=== PATIENT | female | born 1985 | race African-American/Black ===

== ENCOUNTER 2020-05-13 10:48 | Emergency (ER) | payer MEDICAID ==
--- NOTE | 2020-05-13 11:49 | EDM.PDOC ---
ED HPI GENERAL MEDICAL PROBLEM - General Chief Complaint: General Stated Complaint: Cough, runny nose, fatigue Time Seen by Provider: 05/13/20 11:28 Source of Information: Reports: Patient History Limitations: Reports: No Limitations - History of Present Illness INITIAL COMMENTS - FREE TEXT/NARRATIVE: This patient is a 34 year old female that presents to the ER. Patient works at local [employer]. Patient reports that yesterday she started with headache frontal, runny nose, fatigue, chills, throat irritation. Patient reports that the [employer] tested her rapid for covid this morning and she was negative. Onset Date: 05/12/20 Duration: Day(s): (1) Location: Reports: Head Quality: Reports: Ache Severity: Mild Worsens with: Reports: None Associated Symptoms: Reports: Fever/Chills, Headaches. Denies: Confusion, Chest Pain, Cough, cough w sputum, Diaphoresis, Loss of Appetite, Malaise, Nausea/Vomiting, Rash, Seizure, Shortness of Breath, Syncope, Weakness Headache Pain Score (Numeric/FACES): 6 - Related Data Allergies Allergy/AdvReac Type Severity Reaction Status Date / Time No Known Allergies Allergy Verified 05/13/20 10:50 Home Meds: Home Meds . [No Known Home Meds] 05/13/20 [History] Past Medical History - Past Health History Medical/Surgical History: Denies Medical/Surgical History Social & Family History - Family History Family Medical History: No Pertinent Family History - Tobacco Use Tobacco Use Status *Q: Never Tobacco User Second Hand Smoke Exposure: No - Caffeine Use Caffeine Use: Reports: None - Recreational Drug Use Recreational Drug Use: No ED ROS GENERAL - Review of Systems Review Of Systems: See Below Constitutional: Reports: Chills, Malaise, Fatigue. Denies: Fever HEENT: Reports: Rhinitis, Throat Pain (described as irritation) Respiratory: Reports: No Symptoms. Denies: Shortness of Breath, Wheezing, Pleuritic Chest Pain, Cough, Sputum Cardiovascular: Reports: No Symptoms Endocrine: Reports: No Symptoms GI/Abdominal: Reports: No Symptoms. Denies: Abdominal Pain, Diarrhea, Nausea, Vomiting : Reports: No Symptoms Musculoskeletal: Reports: No Symptoms Skin: Reports: No Symptoms Neurological: Reports: Headache (frontal) Psychiatric: Reports: No Symptoms Hematologic/Lymphatic: Reports: No Symptoms Immunologic: Reports: No Symptoms ED EXAM, GENERAL - Physical Exam Exam: See Below Exam Limited By: No Limitations General Appearance: Alert, WD/WN, No Apparent Distress Eye Exam: Bilateral Eye: Normal Inspection, PERRL Ears: Normal External Exam, Normal Canal, Hearing Grossly Normal, Normal TMs Ear Exam: Bilateral Ear: Auricle Normal, Canal Normal, TM normal Nose: Normal Inspection, Normal Mucosa, No Blood Throat/Mouth: Normal Inspection, Normal Lips, Normal Teeth, Normal Gums, Normal Oropharynx, Normal Voice, No Airway Compromise Head: Atraumatic, Normocephalic Neck: Normal Inspection, Supple, Non-Tender, Full Range of Motion Respiratory/Chest: No Respiratory Distress, Lungs Clear, Normal Breath Sounds, No Accessory Muscle Use Cardiovascular: Normal Peripheral Pulses, Regular Rate, Rhythm, No Edema, No Gallop, No JVD, No Murmur, No Rub Peripheral Pulses: 2+: Radial (L), Radial (R), Posterior Tibial (L), Posterior Tibial (R) GI/Abdominal: Soft, Non-Tender, No Organomegaly Back Exam: Normal Inspection, Full Range of Motion. No: CVA Tenderness (L), CVA Tenderness (R) Extremities: Normal Inspection, Normal Range of Motion, No Pedal Edema, Normal Capillary Refill, Pedal Edema Neurological: Alert, Oriented, CN II-XII Intact, Normal Cognition, Normal Gait, No Motor/Sensory Deficits Psychiatric: Normal Affect, Normal Mood Skin Exam: Warm, Dry, Intact, Normal Color, No Rash Lymphatic: No Adenopathy #1 Interpretation EKG Date: 05/13/20 Time: 11:40 Rhythm: NSR Rate (Beats/Min): 68 [place]: Normal P-Wave: Present QRS: Normal ST-T: Normal QT: Normal Comparison: NA - No Prior EKG Course - Vital Signs Last Recorded V/S: Last Vital Signs Temp 98.6 F 05/13/20 10:58 Pulse 81 05/13/20 10:58 Resp 18 05/13/20 10:58 BP 144/72 H 05/13/20 10:58 Pulse Ox 100 05/13/20 10:58 - Orders/Labs/Meds Orders: Active Orders 24 hr Category Date Time Status Chest 2V [CR] Stat Exams 05/13/20 11:21 Taken CULTURE BLOOD [BC] Stat Lab 05/13/20 11:18 Received CULTURE BLOOD [BC] Stat Lab 05/13/20 11:18 Received D-DIMER QUANTITATIVE [COAG] Stat Lab 05/13/20 12:10 Received INFLUENZA A+B AG SCREEN [RM] Stat Lab 05/13/20 11:18 Received INR,PT,PROTHROMBIN TIME [COAG] Stat Lab 05/13/20 11:18 Received PTT,PARTIAL THROMBOPLSTIN TIME [COAG] Stat Lab 05/13/20 11:18 Received URINALYSIS W/O MICROSCOPIC [UA W/O MICROSCOPIC] [URIN] Lab 05/13/20 11:18 Ordered Stat Blood Culture x2 Reflex Set [OM.PC] Stat Oth 05/13/20 11:20 Ordered Isolation [COMM] Routine Oth 05/13/20 11:22 Active Labs: Laboratory Tests 05/13/20 05/13/20 05/13/20 Range/Units 11:18 11:18 11:18 WBC 3.9 L (5.0-10.0) 10^3/uL RBC 4.57 (4.00-5.50) 10^6/uL Hgb 13.2 (12.0-16.0) g/dL Hct 39.5 (37.0-47.0) % MCV 86.4 (82.0-94.0) fL MCH 28.9 (27.0-32.0) pg MCHC 33.4 (33.0-38.0) g/dL RDW Coeff of Christiano 13.0 (11.0-15.0) % Plt Count 149 L (150-400) 10^3/uL Neut % (Auto) 43.8 (35-85) % Lymph % (Auto) 47.3 (10-55) % Wilson % (Auto) 8.1 (0-16) % Eos % (Auto) 0.5 (0-5) % Baso % (Auto) 0.3 (0-3) % Neut # (Auto) 1.72 L (1.80-7.00) 10^3/uL Lymph # (Auto) 1.86 (1.00-4.80) 10^3/uL Wilson # (Auto) 0.32 (0.00-0.80) 10^3/uL Eos # (Auto) 0.02 (0.00-0.45) 10^3/uL Baso # (Auto) 0.01 10^3/uL Sodium (136-145) mEq/L Potassium (3.5-5.0) mEq/L Chloride (98-106) mEq/L Carbon Dioxide (21-32) mmol/L BUN (7-18) mg/dL Creatinine (0.6-1.0) mg/dL Est Cr Clr Drug Dosing mL/min Estimated GFR (MDRD) (>=60) mL/min Glucose (75-99) mg/dL Lactic Acid (0.4-2.0) mmol/L Calcium (8.4-10.1) mg/dL Total Bilirubin (0.0-1.0) mg/dL AST (15-37) U/L ALT (12-78) U/L Alkaline Phosphatase (46-116) U/L Creatine Kinase (21-215) U/L Troponin I (0.00-0.06) ng/mL NT-Pro-B Natriuret Pep (0-1000) pg/mL Total Protein (6.4-8.2) g/dL Albumin (3.4-5.0) g/dL Urine HCG, Qual Negative SARS CoV-2 RNA Rapid NEHAL Negative (NEGATIVE) 05/13/20 05/13/20 Range/Units 11:18 11:18 WBC (5.0-10.0) 10^3/uL RBC (4.00-5.50) 10^6/uL Hgb (12.0-16.0) g/dL Hct (37.0-47.0) % MCV (82.0-94.0) fL MCH (27.0-32.0) pg MCHC (33.0-38.0) g/dL RDW Coeff of Christiano (11.0-15.0) % Plt Count (150-400) 10^3/uL Neut % (Auto) (35-85) % Lymph % (Auto) (10-55) % Wilson % (Auto) (0-16) % Eos % (Auto) (0-5) % Baso % (Auto) (0-3) % Neut # (Auto) (1.80-7.00) 10^3/uL Lymph # (Auto) (1.00-4.80) 10^3/uL Wilson # (Auto) (0.00-0.80) 10^3/uL Eos # (Auto) (0.00-0.45) 10^3/uL Baso # (Auto) 10^3/uL Sodium 139 (136-145) mEq/L Potassium 3.4 L (3.5-5.0) mEq/L Chloride 102 (98-106) mEq/L Carbon Dioxide 25 (21-32) mmol/L BUN 9 (7-18) mg/dL Creatinine 0.7 (0.6-1.0) mg/dL Est Cr Clr Drug Dosing 107.01 mL/min Estimated GFR (MDRD) > 60 (>=60) mL/min Glucose 87 (75-99) mg/dL Lactic Acid 1.0 (0.4-2.0) mmol/L Calcium 9.1 (8.4-10.1) mg/dL Total Bilirubin 0.7 (0.0-1.0) mg/dL AST 15 (15-37) U/L ALT 20 (12-78) U/L Alkaline Phosphatase 44 L (46-116) U/L Creatine Kinase 205 (21-215) U/L Troponin I < 0.017 (0.00-0.06) ng/mL NT-Pro-B Natriuret Pep 86 (0-1000) pg/mL Total Protein 8.0 (6.4-8.2) g/dL Albumin 3.9 (3.4-5.0) g/dL Urine HCG, Qual SARS CoV-2 RNA Rapid NEHAL (NEGATIVE) - Radiology Interpretation Free Text/Narrative:: CXR: no acute findings, lungs clear. Departure - Departure Time of Disposition: 12:42 Disposition: Home, Self-Care 01 Condition: Fair Clinical Impression: Viral upper respiratory illness - Discharge Information *PRESCRIPTION DRUG MONITORING PROGRAM REVIEWED*: Not Applicable *COPY OF PRESCRIPTION DRUG MONITORING REPORT IN PATIENT ANDRA: Not Applicable Instructions: Viral Respiratory Infection, [id number] Referrals: PCP,None [Primary Care Provider] - Forms: ED Department Discharge Additional Instructions: Followup with a primary care provider this week in the clinic for a recheck Return to the ER for worsening of condition or any emergent concerns Tylenol or Motrin for pain or fever if develops Increase fluids Over the counter medications for symptoms Quarantine for 14 days from symptoms onset, unless instructed otherwise by the [facility]/employer Sepsis Event Note (ED) - Evaluation Sepsis Screening Result: No Definite Risk - Focused Exam Vital Signs: Vital Signs Temp Pulse Resp BP Pulse Ox 05/13/20 10:58 98.6 F 81 18 144/72 H 100 - My Orders Last 24 Hours: My Active Orders 05/13/20 11:18 CULTURE BLOOD [BC] Stat CULTURE BLOOD [BC] Stat INFLUENZA A+B AG SCREEN [RM] Stat INR,PT,PROTHROMBIN TIME [COAG] Stat PTT,PARTIAL THROMBOPLSTIN TIME [COAG] Stat URINALYSIS W/O MICROSCOPIC [UA W/O MICROSCOPIC] [URIN] Stat 05/13/20 11:20 Blood Culture x2 Reflex Set [OM.PC] Stat 05/13/20 11:21 Chest 2V [CR] Stat 05/13/20 11:22 Isolation [COMM] Routine 05/13/20 12:10 D-DIMER QUANTITATIVE [COAG] Stat - Assessment/Plan Last 24 Hours: My Active Orders 05/13/20 11:18 CULTURE BLOOD [BC] Stat CULTURE BLOOD [BC] Stat INFLUENZA A+B AG SCREEN [RM] Stat INR,PT,PROTHROMBIN TIME [COAG] Stat PTT,PARTIAL THROMBOPLSTIN TIME [COAG] Stat URINALYSIS W/O MICROSCOPIC [UA W/O MICROSCOPIC] [URIN] Stat 05/13/20 11:20 Blood Culture x2 Reflex Set [OM.PC] Stat 05/13/20 11:21 Chest 2V [CR] Stat 05/13/20 11:22 Isolation [COMM] Routine 05/13/20 12:10 D-DIMER QUANTITATIVE [COAG] Stat Plan: PLEASE SEE RN NOTE FOR PFSH
[2020-05-13 12:12] LABS: CHLORIDE,CL 102 mEq/L (98-106); SODIUM,NA 139 mEq/L (136-145)
[2020-05-13 12:59] LABS: PTT,PARTIAL THROMBOPLSTIN TIME 27.2 SEC (23.2-32.3)
== END 2020-05-13 12:47 | disposition home or self-care (01) ==
LOC: CC.ED 10:48
DX: J06.9 Acute upper respiratory infection, unspecified (principal); Z20.828 Contact with and (suspected) exposure to other viral communicable diseases
CPT/HCPCS: 36415; 71046; 80053; 81003; 81025; 82550; 83605; 83880; 84484; 85025; 85379; 85610; 85730; 87040; 87804; 93005; 99284-25; U0002